=== PATIENT | female | born 1970 | race Hispanic/Latino ===

== ENCOUNTER 2017-09-08 19:23 | Emergency (ER) | payer SELFPAY ==
[~2017-09-08] VITALS: Ht 160 cm; Wt 95.3 kg
[~2017-09-08 19:23] MED LIST: LEVOTHYROXINE150 MCG PO
[2017-09-08] MEDS ORDERED: ALBUTEROL SULF 0.083% NEB SOLN 3 ML NEB NEB STA (19:27)
[2017-09-08] MEDS ORDERED: IPRATROPIUM BROMIDE 0.02% 2.5 ML NEB NEB STA (19:27)
[2017-09-08] MEDS ORDERED: IBUPROFEN 600 MG TAB PO STA (19:28)
[2017-09-08] MEDS ORDERED: DEXAMETHASONE SOD PHOS 10 MG/1 ML VIAL INJ ONE (19:30)
[2017-09-08] MEDS ORDERED: ACETAMINOPHEN/CODEINE ELIX 120-12 MG/5 ML UDC NG ONE (19:30)
[2017-09-08 19:56] VITALS: BP 5/3
[2017-09-08 20:15] LABS: BASOPHILS # (AUTO) 0.1 (0.0-0.1); BASOPHILS % 1.2 % (0.0-1.0); EOSINOPHILS # (AUTO) 0.1 (0.0-0.4); EOSINOPHILS % 1.7 % (0.0-6.0); HEMATOCRIT 44.4 % (34.2-44.1); HEMOGLOBIN 14.5 g/dL (12.0-16.0); LYMPHOCYTES # (AUTO) 0.8 (1.0-3.2); LYMPHOCYTES % 20.3 % (18.0-39.1); MEAN CORPUSCULAR HEMOGLOBIN 29.8 pg (28-32); MEAN CORPUSCULAR HGB CONC 32.7 g/dL (31-35); MEAN CORPUSCULAR VOLUME 91.2 fL (81-99); MONOCYTES # (AUTO) 0.6 (0.2-0.8); MONOCYTES % 14.8 % (4.4-11.3); NEUTROPHILS # (AUTO) 2.5 (2.1-6.9); NEUTROPHILS % 61.3 % (38.7-80.0); PLATELET COUNT 117 x10e3/uL (140-360); RED BLOOD COUNT 4.87 x10e6/uL (3.6-5.1); RED CELL DISTRIBUTION WIDTH 12.6 % (11.7-14.4)
--- NOTE | 2017-09-08 20:28 | Diagnostic Imaging Report ---
EXAM: CHEST 2 VIEWS, PA and lateral DATE: 09/08/2017 7:27 PM Time stamp on exam: 1940 hours INDICATION: Cough, fever congestion COMPARISON: AP view of the chest May 21, 2013 FINDINGS: LINES/TUBES: None LUNGS: No consolidations or edema. PLEURA: No effusions or pneumothorax. HEART AND MEDIASTINUM: Normal size and contour. BONES AND SOFT TISSUES: No acute findings. IMPRESSION: Study limited by motion artifact. No consolidations. Possible bronchial thickening. Signed by: Dr. Alicia iDckerson M.D. on 09/08/2017 8:24 PM
[2017-09-08 20:39] LABS: ALANINE AMINOTRANSFERASE 159 IU/L (0-55); ALBUMIN 3.6 g/dL (3.5-5.0); ALBUMIN/GLOBULIN RATIO 0.8 (0.8-2.0); ALKALINE PHOSPHATASE 106 IU/L (40-150); ANION GAP 11.8 mmol/L (8-16); BLOOD UREA NITROGEN 8 mg/dL (7-26); BUN/CREATININE RATIO 10 (6-25); CALCIUM 8.9 mg/dL (8.4-10.2); CARBON DIOXIDE 24 mmol/L (22-29); CHLORIDE 105 mmol/L (98-107); CREATININE, SERUM 0.82 mg/dL (0.57-1.11); EST GLOMERULAR FILTRATION RATE > 60 ML/MIN (60-); GLUCOSE 157 mg/dL (74-118); POTASSIUM 3.8 mmol/L (3.5-5.1); SODIUM 137 mmol/L (136-145)
[2017-09-08 21:11] LABS: INFLUENZAE A&B ANTIGEN (RAPID) NEGATIVE (NEGATIVE); STREPTOCOCCUS GRP A ANTIGEN NEGATIVE (NEGATIVE)
== END 2017-09-08 22:35 | disposition home or self-care (01) ==
LOC: ER 19:23
DX: R50.9 Fever, unspecified (principal); R05 Cough; J20.9 Acute bronchitis, unspecified; E03.9 Hypothyroidism, unspecified
CPT/HCPCS: 36415; 71020; 80053; 83518; 85025; 87070; 87400; 94640; 99284; J1100

== ENCOUNTER 2020-05-24 12:11 | Emergency (ER) | payer SELFPAY ==
[~2020-05-24] VITALS: Ht 160 cm; Wt 95.3 kg
[2020-05-24] MEDS ORDERED: KETOROLAC TROMETHAMINE 30 MG/ML VIAL IV STA (12:41)
--- NOTE | 2020-05-24 12:41 | Emergency Department Note ---
History of Present Illnes History of Present Illness Chief Complaint: COVID PUI History of Present Illness This is a 49 year old female Chief Complaint Comment Patient in from home with complaints of sore throat, body aches, headache and nausea that started yesteday. Patient was covid positive in the end of January and tested negative in February. Patient feels that she totally recovered from covid and these symptoms started yesterday. Patient states her throat pain is 10/10 and her body aches are 6/10. Historian: Patient Arrival Mode: Car Onset (how long ago): day(s) (1) Location: Throat Quality: Sharp Radiation: Reports non-radiation Severity: moderate Onset quality: gradual Duration (how long): day(s) (1) Timing of current episode: constant Progression: worsening Chronicity: new Context: Denies recent illness, Denies recent surgery Relieving factors: none Exacerbating factors: none Associated symptoms: Reports denies other symptoms Treatments prior to arrival: none Past Medical/Family History Physician Review I have reviewed the patient's past medical and family history. Any updates have been documented here. Past Medical History Recent Fever: No Clinical Suspicion of Infectio: No New/Unexplained Change in Ment: No Past Medical History: Hypothyroidism Other Surgery: Other Last Tetanus: UTD Review of Systems Review of Systems Constitutional: Reports chills, Reports fever EENTM: Reports as per HPI Cardiovascular: Reports no symptoms Respiratory: Reports no symptoms Gastrointestinal: Reports no symptoms Genitourinary: Reports no symptoms Musculoskeletal: Reports no symptoms Integumentary: Reports no symptoms Neurological: Reports no symptoms Psychological: Reports no symptoms Endocrine: Reports no symptoms Hematological/Lymphatic: Reports no symptoms Physical Exam Related Data Allergies: Coded Allergies: No Known Allergies (Unverified , 05/21/13) Triage Vital Signs Vital Signs Date Time Temp Pulse Resp B/P (MAP) Pulse Ox O2 Delivery O2 Flow Rate FiO2 05/24/20 12:27 99.6 110 20 150/99 100 Room Air Vital signs reviewed: Yes Physical Exam CONSTITUTIONAL Constitutional: Present well-developed, Present well-nourished HENT HENT: Present normocephalic, Present atraumatic, Present oropharynx clear/moist, Present nose normal HENT L/R: Present left ext ear normal, Present right ext ear normal EYES Eyes: Reports PERRL, Reports conjunctivae normal NECK Neck: Present ROM normal PULMONARY Pulmonary: Present effort normal, Present breath sounds normal CARDIOVASCULAR Cardiovascular: Present regular rhythm, Present heart sounds normal, Present capillary refill normal, Present tachycardia GASTROINTESTINAL Abdominal: Present soft, Present nontender, Present bowel sounds normal GENITOURINARY Genitourinary: Present exam deferred SKIN Skin: Present warm, Present dry MUSCULOSKELETAL Musculoskeletal: Present ROM normal NEUROLOGICAL Neurological: Present alert, Present oriented x 3, Present no gross motor or sensory deficits PSYCHOLOGICAL Psychological: Present mood/affect normal, Present judgement normal Assessment & Plan Medical Decision Making MDM 49-year-old female presents for sore throat, body aches, headache. Exam is largely unremarkable. Initial differential includes strep throat versus influenza versus other upper rest for infection. She has had COVID 2 months ago. Work up largely unremarkable. Will treat as viral URI. Doubt emergent process at this time. I discussed results patient as well as expected disease time course and management. They will follow up with their primary care provider or return to the emergency department for new or worsening symptoms. Patient's appropriate for discharge. Part of this note was dictated with Cherry and is subject to recognition errors. Reassessment Reassessment time: 13:17 Reassessment Well appearing, NAD Assessment & Plan Final Impression: (1) URI (upper respiratory infection) Depart Disposition: HOME, SELF-CARE Last Vital Signs Date Time Temp Pulse Resp B/P (MAP) Pulse Ox O2 Delivery O2 Flow Rate FiO2 05/24/20 12:27 99.6 110 20 150/99 100 Room Air Home Meds Reported Medications Levothyroxine Sodium (LEVOTHYROXINE SODIUM) 150 Mcg Tablet, 150 MCG PO DAILY 05/21/13 DAVID PHILLIPS MD May 24, 2020 12:41
[2020-05-24] MEDS ORDERED: SODIUM CHLORIDE 0.9% 1000ML 1,000 ML IV SCH (12:45)
--- OUTSIDE RECORDS SUMMARY | 2020-05-24 12:50 | XMS REPORT | Continuity of Care Document ---
Author Author [facility] t Organization Formerly [facility] Address [address] [place] [address] Phone Unavailable Care Team Providers Care Pss Delivery Professional Name Role Phone William FABIAN Attphys Unavailable Payers Payer Name Policy Type Policy Number Effective Date Expiration Date S ource Problems This patient has no known problems. Allergies, Adverse Reactions, Alerts Allergy Name Allergy Type Status Severity Reaction(s) Onset Date Inacti ve Date Treating Clinician Comments Source No Known Allergies DA Active U 2018-11-16 00:00:00 [facility] No Known Drug Intolerances DA Active U 2017-12-24 00:00:0 0 [facility] Medications This patient has no known medications. Procedures This patient has no known procedures. Results Test Description Test Time Test Comments Results Result Comments Source SCR MAMM BILATERAL RONI CAD DIGITAL 2019-10-30 11:23:05 - SCR MAMM BILATERAL RONI CAD DIGITALBILATERAL DIGITAL SCREENING MAMMOGRAM 3D/2D WITH CAD: 10/15/2019CLINICAL: Asymptomatic. Digital breast tomosynthesis was performed in addition to routine CC and MLO views. Current mammographic images were evaluated by either a Blume Distillation M-Vu or a SocialBro ImageChecker CAD (computer aided detection system). Comparison is made to exams dated 11/09/2015 mammogram and mammogram - [facility]. There are scattered fibroglandular tissues in both breasts. No suspicious mass, architectural distortion, malignant type calcification, or lymph node abnormality detected. Breast architecture is stable compared to prior exams.IMPRESSION: NEGATIVEThere is no mammographic evidence of malignancy. Resume annual screening mammography in one year. Rosalio arriola/penchina:10/30/2019 11:23:05 Acetylene Gas Compressor: Radha VEGA, [facility] sent: BIRADS 1-2 Normal Mammogram BI-RADS: 1 Negative UR HCG QUAL 2019-08-04 11:00:00 Test Item UR HCG QUAL (test code = HCGQLU) NEGATIVE This HCGQL test is NOT applicable for MALE patients.Check with nurse about probable order error.If Tumor Marker Test needed, nurse should order test "HCGTU"(Test #[id number]) - CT HEAD/BRAIN W/O [id number] 10:33:00 Name: ROSHANAWA BAUTISTA [facility] : 1970 Age/S: 48 / F [address] [facility] Unit #: [id number] Loc: [place] [address] Phys: Thaddeus Morrow MD Acct: [id number] Dis Date: Status: REG ER PHONE #: [phone] Exam Date: 08/04/2019 0948 FAX #: [phone] Reason: dizziness vomiting EXAMS: CPT CODE: [id number] CT HEAD/BRAIN W/O CONT 30802 HISTORY: dizziness vomiting TECHNIQUE: Noncontrast 2.[address] of the head. Examination acquired within 24 hours of arrival. Automated exposure control for dose reduction. COMPARISON: Noncontrast CT brain November 16, 2018 FINDINGS: No lacerations or contusions of the scalp or facial soft tissues. Calvarium and skull base are intact. No acute hemorrhage. No intracranial mass, mass effect, or midline shift. No effacement of the sulci or vang-white matter interface. Mild age-appropriate cortical atrophy is unchanged from the prior exam. No hydrocephalus.. No extra-axial fluid collection. Visualized paranasal sinuses are clear. Mastoid air cells and middle ear cavities are clear. Orbital contents are unremarkable. IMPRESSION: No acute intracranial process. Location: [facility] at 1033 Reported and signed by: Mateusz Clark C: Thaddeus Morrow MD Technologist:Kim Mathew per CTDI: DLP: Trnscb Date/Time: 08/04/2019 (1 033) [id number] Orig Print D/T: S: 08/04/2019 (3076) PAGE 1 Signed Report CBC W/O [id number] 10:12:00* Test Item Value Reference Range Interpretation Comments WHITE BLOOD CELL (test code = WBC) 5.1 K/mm3 4.5-12.5 N RED BLOOD CELL (test code = RBC) 5.05 mill/mm3 3.7-5.2 N HEMOGLOBIN (test code = HGB) 14.7 gram/dL 11.5-15.5 N HEMATOCRIT (test code = HCT) 44.6 % 36.0-46.0 N MEAN CELL VOLUME (test code = MCV) 88.3 fL 80-98 N MEAN CELL HGB (test code = MCH) 29.1 picogram 27.0-33.0 N MEAN CELL HGB CONCETRATION (test code = MCHC) 33.0 gram/dL 33.0-36. 0 N RED CELL DISTRIBUTION WIDTH (test code = RDW) 12.5 % 11.6-16. 2 N RED CELL DISTRIBUTION WIDTH SD (test code = RDW-SD) 41.1 fL 37 .0-51.0 N PLATELET COUNT (test code = PLT) 136 K/mm3 150-450 L MEAN PLATELET VOLUME (test code = MPV) 13.6 fL 6.7-11.0 H BASIC METABOLIC [id number] 10:12:00* Test Item Value Reference Range Interpretation Comments SODIUM (test code = NA) 140 mmol/L 136-145 N POTASSIUM (test code = K) 3.8 mmol/L 3.5-5.1 N CHLORIDE (test code = CL) 104 mmol/L 101-109 N CARBON DIOXIDE (test code = CO2) 25.5 mmol/L 21-32 N ANION GAP (test code = GAP) 14 mmol/L 10-20 N GLUCOSE (test code = GLU) 107 mg/dL 74-106 H BLOOD UREA NITROGEN (test code = BUN) 10 mg/dL 3-21 N GLOMERULAR FILTRATION RATE (test code = GFR) > 60 mL/min >=60 Estimated GFR by using Modified MDRD formula.Chronic kidney disease is defined as either kidney damageor GFR <60 mL/min/1.73 m2 for >3 months. CREATININE (test code = CREAT) 0.75 mg/dL 0.55-1.3 N BUN/CREATININE RATIO (test code = BUN/CREA) 13.3 10-20 N CALCIUM (test code = CA) 8.7 mg/dL 8.4-10.2 N HEPATIC FUNCTION [id number] 10:12:00* Test Item Value Reference Range Interpretation Comments TOTAL PROTEIN (test code = PROT) 7.9 g/dL 6.5-8.4 N ALBUMIN (test code = ALB) 3.4 g/dL 3.4-4.8 N GLOBULIN (test code = GLOB) 4.5 G/DL 1-10 N ALBUMIN/GLOBULIN RATIO (test code = A/G) 0.76 RATIO 0.75-1.50 N BILIRUBIN TOTAL (test code = BILT) 0.50 mg/dL 0.0-1.0 N BILIRUBIN DIRECT (test code = BILD) 0.10 mg/dL 0.0-0.30 N SGOT/AST (test code = AST) 44 U/L 6-32 H SGPT/ALT (test code = ALT) 53 U/L 12-78 N N ote: Change in REFERENCE RANGE due to new reagent method. ALKALINE PHOSPHATASE TOTAL (test code = ALKP) 110 U/L 38-126 N CREATINE KINASE (CK)2019-08-04 10:12:00* Test Item Value Reference Range Interpretation Comments CREATINE KINASE (CK) (test code = CK) 126 U/L 26-192 N [id number] 10:12:00* Test Item Value Reference Range Interpretation Comments TROPONIN-I (test code = TROPI) <0.015 ng/mL 0.00-0.056 N [id number] 10:10:00* Test Item Value Reference Range Interpretation Comments D-DIMER (test code = DDIMER) < 100 ng/ml < 600 URINALYSIS [id number] 10:08:00* Test Item Value Reference Range Interpretation Comments UA COLOR (test code = COLU) YELLOW YELLOW UA APPEARANCE (test code = APPU) HAZY CLEAR A UA GLUCOSE DIPSTICK (test code = DGLUU) norm mg/dL NEGATIVE UA BILIRUBIN DIPSTICK (test code = BILU) NEGATIVE mg/dL NEGATIVE UA KETONE DIPSTICK (test code = KETU) neg mg/dL NEGATIVE UA SPECIFIC GRAVITY (test code = SGU) 1.020 1.001-1.035 UA BLOOD DIPSTICK (test code = REY) 10 (Trace) Sunny/uL NEGATIVE A UA PH DIPSTICK (test code = CAROLYN) 5.0 5.0-8.0 UA PROTEIN DIPSTICK (test code = PROU) 30 (1+) mg/dL Neg-15 A UA UROBILINIOGEN DIPSTICK (test code = URO) norm mg/dL 0.0-0.2 UA NITRITE DIPSTICK (test code = LASHAE) NEGATIVE NEGATIVE UA LEUKOCYTE ESTERASE DIPSTICK (test code = LEUU) neg uL NEGA TIVE UA WBC (test code = WBCU) 0-1 per HPF 0-5 UA RBC (test code = RBCU) NONE SEEN per HPF 0-5 UA EPITHELIAL CELLS (test code = EPIU) MANY per HPF Few UA BACTERIA (test code = BACU) MODERATE per HPF NONE A Urine Source? Clean CatchBASIC METABOLIC [id number] 10:06:00* Test Item Value Reference Range Interpretation Comments SODIUM (test code = NA) 140 mmol/L 136-145 N POTASSIUM (test code = K) 3.8 mmol/L 3.5-5.1 N CHLORIDE (test code = CL) 104 mmol/L 101-109 N CARBON DIOXIDE (test code = CO2) 25.5 mmol/L 21-32 N ANION GAP (test code = GAP) 14 mmol/L 10-20 N GLUCOSE (test code = GLU) 107 mg/dL 74-106 H BLOOD UREA NITROGEN (test code = BUN) 10 mg/dL 3-21 N GLOMERULAR FILTRATION RATE (test code = GFR) > 60 mL/min >=60 Estimated GFR by using Modified MDRD formula.Chronic kidney disease is defined as either kidney damageor GFR <60 mL/min/1.73 m2 for >3 months. CREATININE (test code = CREAT) 0.75 mg/dL 0.55-1.3 N BUN/CREATININE RATIO (test code = BUN/CREA) 13.3 10-20 N CALCIUM (test code = CA) 8.7 mg/dL 8.4-10.2 N HEPATIC FUNCTION [id number] 10:06:00* Test Item Value Reference Range Interpretation Comments TOTAL PROTEIN (test code = PROT) gram/dL 6.4-8.2 ALBUMIN (test code = ALB) g/dL 3.4-5.0 GLOBULIN (test code = GLOB) g/dL 2.7-4.2 ALBUMIN/GLOBULIN RATIO (test code = A/G) 0.75-1.50 BILIRUBIN TOTAL (test code = BILT) mg/dL 0.2-1.2 BILIRUBIN DIRECT (test code = BILD) mg/dL 0.0-0.20 SGOT/AST (test code = AST) IUnit/L 15-37 SGPT/ALT (test code = ALT) U/L 10-69 ALKALINE PHOSPHATASE TOTAL (test code = ALKP) IUnit/L 45-117 CREATINE KINASE (CK)2019-08-04 10:06:00* Test Item Value Reference Range Interpretation Comments CREATINE KINASE (CK) (test code = CK) IUnit/L 26-208 [id number] 10:06:00* Test Item Value Reference Range Interpretation Comments TROPONIN-I (test code = TROPI) ng/mL 0-0.045 URINALYSIS [id number] 10:02:00* Test Item Value Reference Range Interpretation Comments UA COLOR (test code = COLU) YELLOW YELLOW UA APPEARANCE (test code = APPU) CLEAR UA GLUCOSE DIPSTICK (test code = DGLUU) norm mg/dL NEGATIVE UA BILIRUBIN DIPSTICK (test code = BILU) NEGATIVE mg/dL NEGATIVE UA KETONE DIPSTICK (test code = KETU) neg mg/dL NEGATIVE UA SPECIFIC GRAVITY (test code = SGU) 1.020 1.001-1.035 UA BLOOD DIPSTICK (test code = REY) 10 (Trace) Sunny/uL NEGATIVE A UA PH DIPSTICK (test code = CAROLYN) 5.0 5.0-8.0 UA PROTEIN DIPSTICK (test code = PROU) 30 (1+) mg/dL Neg-15 A UA UROBILINIOGEN DIPSTICK (test code = URO) norm mg/dL 0.0-0.2 UA NITRITE DIPSTICK (test code = LASHAE) NEGATIVE NEGATIVE UA LEUKOCYTE ESTERASE DIPSTICK (test code = LEUU) neg uL NEGA TIVE UA WBC (test code = WBCU) per HPF 0-5 UA RBC (test code = RBCU) per HPF 0-5 UA EPITHELIAL CELLS (test code = EPIU) per HPF Few UA BACTERIA (test code = BACU) per HPF NONE Urine Source? Clean Catch- XR CHEST 1 [id number] 10:02:00 Name: AWA ISLAS [facility] : 1970 Age/S:48 /F [address] [facility] Unit#:[id number] Loc: [place] [address] Phys: Thaddeus Morrow MD Dis Date: PHONE #: [phone] Status: REG ER FAX #: [phone] Exam Date: 08/04/2019 Reason: WEAKNESS EXAMS: CPT CODE: [id number] XR CHEST 1 V 10008 REASON FOR EXAM: WEAKNESS Exam Order Date: 08/04/2019 9:23 AM Ordering M.D.: Thaddeus Morrow MD PROCEDURE: - XR CHEST 1 V COMPARISON: None FINDINGS: The lungs are clear. There is no pleural effusion or pneumothorax. Pulmonary vascularity is within normal limits. Cardiomediastinal silhouette is normal in size for technique. The mediastinal contours are within normal limits. There are degenerative changes in the midthoracic spine. The visualized upp er abdomen is within normal limits. IMPRESSION: No acute cardiopulmonary process. Location: [facility] El ectronically Signed by Mateusz Crook MD on 08/04/2019 at 1002 Reported and signed by: Mateusz rCook MD CC: Thaddeus Morrow MD Technologist: Kim Durham Trnscrpt Data: 08/04/2019 (1002) [id number] Orig Print D/T: S: 08/04/2019 (1008) PAGE 1 Signed Report - CT HEAD/BRAIN W/O [id number] 23:44:00 Name: AWA ISLAS [facility] : 1970 Age/S: 48 / F [address] [facility] Unit #: [id number] Loc: [place] [address] Phys: Meng Peraza MD Acct: [id number] Dis Date: Status: REG ER PHONE #: [phone] Exam Date: 11/16/2018 2305 FAX #: [phone] Reason: facial weakness, dizziness EXAMS: CPT CODE: [id number] CT HEAD/BRAIN W/O CONT 65506 HISTORY: Female, 48 years of age with facial weakness, dizziness Location code: R16 EXAM: CT BRAIN WITHOUT CONTRAST COMPARISON: None. TECHNIQUE: Helical axial images were obtained through the brain without IV contrast. Coronal and sagittal reformats were performed. One or more of the following dose reduction techniques were used: Automated exposure control; adjustment of the mA and/or kV according to the patient size; and/or use of iterative reconstruction technique. FINDINGS: There is no acute intra-axial or extra-axial hemorrhage, mass, mass effect or midline shift. No acute loss of the cortical prather/white junctions. No hydrocephalus. There is no acute calvarial fracture. The sinuses and mastoids are clear. IMPRESSION: No acute intracranial hemorrhage, infarct, or mass. Findings were called to Dr. Peraza by Idalia Fang of the call service 1143pm. FOR INTERNAL CODING PURPOSES ONLY CRITICAL RESULT CODE: CVR at 2344 Reported and signed by: Marleen Bobby MD CC: Meng Peraza MD Technologist:MAE RAMIREZ CT CTDI: DLP: Trnscb Date/Time: 11/16/2018 (5584) [email or web address] Orig Print D/T: S: 11/16/2018 (8244) CTDI: DLP: PAGE 1 Signed Report CBC W/AUTO [id number] 23:41:00* Test Item Value Reference Range Interpretation Comments WHITE BLOOD CELL (test code = WBC) 6.4 K/mm3 4.5-12.5 N RED BLOOD CELL (test code = RBC) 4.94 mill/mm3 3.7-5.2 N HEMOGLOBIN (test code = HGB) 14.9 gram/dL 11.5-15.5 N HEMATOCRIT (test code = HCT) 45.1 % 36.0-46.0 N MEAN CELL VOLUME (test code = MCV) 91.3 fL 80-98 N MEAN CELL HGB (test code = MCH) 30.2 picogram 27.0-33.0 N MEAN CELL HGB CONCETRATION (test code = MCHC) 33.0 gram/dL 33.0-36. 0 N RED CELL DISTRIBUTION WIDTH (test code = RDW) 13.3 % 11.6-16. 2 N RED CELL DISTRIBUTION WIDTH SD (test code = RDW-SD) 43.6 fL 39 .1-52.0 N PLATELET COUNT (test code = PLT) 134 K/mm3 150-450 L MEAN PLATELET VOLUME (test code = MPV) 13.2 fL 6.7-11.0 H NEUTROPHIL % (test code = NT%) 47.3 % 39.0-69.0 N LYMPHOCYTE % (test code = LY%) 39.0 % 25.0-55.0 N MONOCYTE % (test code = MO%) 8.7 % 0.0-10.0 N EOSINOPHIL % (test code = EO%) 4.2 % 0.0-5.0 N BASOPHIL % (test code = BA%) 0.8 % 0.0-1.0 N NEUTROPHIL # (test code = NT#) 3.03 K/mm3 1.8-7.7 N LYMPHOCYTE # (test code = LY#) 2.50 K/mm3 1.0-5.0 N MONOCYTE # (test code = MO#) 0.56 K/mm3 0-0.8 N EOSINOPHIL # (test code = EO#) 0.27 K/mm3 0.0-0.5 N BASOPHIL # (test code = BA#) 0.05 K/mm3 0.0-0.2 N MANUAL DIFF REQUIRED (test code = MDIFF) NO, ONLY SCAN NEEDED DIFFERENTIAL [id number] 23:41:00* Test Item Value Reference Range Interpretation Comments STAIN ACCEPTABILITY (test code = STN ACCEPTABLE) STAIN ACCEPTABLE MORPHOLOGY COMMENT (test code = MOC) NORMAL PLATELET ESTIMATE (test code = PLTEST) SLIGHTLY DECREASED PLATELET MORPHOLOGY (test code = PLTMORPH) SIZE VARIABLE COMPREHENSIVE METABOLIC [id number] 23:37:00* Test Item Value Reference Range Interpretation Comments SODIUM (test code = NA) 140 mmol/L 135-148 N POTASSIUM (test code = K) 3.3 mmol/L 3.5-5.1 L CHLORIDE (test code = CL) 106 mmol/L 101-109 N CARBON DIOXIDE (test code = CO2) 20.8 mmol/L 21-32 L ANION GAP (test code = GAP) 17 mmol/L 10-20 N GLUCOSE (test code = GLU) 220 mg/dL 74-106 H BLOOD UREA NITROGEN (test code = BUN) 11 mg/dL 3-21 N CREATININE (test code = CREAT) 0.66 mg/dL 0.55-1.3 N BUN/CREATININE RATIO (test code = BUN/CREA) 16.7 10-20 N TOTAL PROTEIN (test code = PROT) 8.4 g/dL 6.5-8.4 N ALBUMIN (test code = ALB) 3.6 g/dL 3.4-4.8 N GLOBULIN (test code = GLOB) 4.8 G/DL 1-10 N ALBUMIN/GLOBULIN RATIO (test code = A/G) 0.8 RATIO 0.75-1.50 N CALCIUM (test code = CA) 8.3 mg/dL 8.4-10.2 L BILIRUBIN TOTAL (test code = BILT) 0.30 mg/dL 0.0-1.0 N SGOT/AST (test code = AST) 36 U/L 6-32 H SGPT/ALT (test code = ALT) 62 U/L 12-78 N N ote: Change in REFERENCE RANGE due to new reagent method. ALKALINE PHOSPHATASE TOTAL (test code = ALKP) 118 U/L 38-126 N CBC W/AUTO [id number] 23:20:00* Test Item Value Reference Range Interpretation Comments WHITE BLOOD CELL (test code = WBC) 6.4 K/mm3 4.5-12.5 N RED BLOOD CELL (test code = RBC) 4.94 mill/mm3 3.7-5.2 N HEMOGLOBIN (test code = HGB) 14.9 gram/dL 11.5-15.5 N HEMATOCRIT (test code = HCT) 45.1 % 36.0-46.0 N MEAN CELL VOLUME (test code = MCV) 91.3 fL 80-98 N MEAN CELL HGB (test code = MCH) 30.2 picogram 27.0-33.0 N MEAN CELL HGB CONCETRATION (test code = MCHC) 33.0 gram/dL 33.0-36. 0 N RED CELL DISTRIBUTION WIDTH (test code = RDW) 13.3 % 11.6-16. 2 N RED CELL DISTRIBUTION WIDTH SD (test code = RDW-SD) 43.6 fL 39 .1-52.0 N PLATELET COUNT (test code = PLT) 134 K/mm3 150-450 L MEAN PLATELET VOLUME (test code = MPV) 13.2 fL 6.7-11.0 H NEUTROPHIL % (test code = NT%) 47.3 % 39.0-69.0 N LYMPHOCYTE % (test code = LY%) 39.0 % 25.0-55.0 N MONOCYTE % (test code = MO%) 8.7 % 0.0-10.0 N EOSINOPHIL % (test code = EO%) 4.2 % 0.0-5.0 N BASOPHIL % (test code = BA%) 0.8 % 0.0-1.0 N NEUTROPHIL # (test code = NT#) 3.03 K/mm3 1.8-7.7 N LYMPHOCYTE # (test code = LY#) 2.50 K/mm3 1.0-5.0 N MONOCYTE # (test code = MO#) 0.56 K/mm3 0-0.8 N EOSINOPHIL # (test code = EO#) 0.27 K/mm3 0.0-0.5 N BASOPHIL # (test code = BA#) 0.05 K/mm3 0.0-0.2 N MANUAL DIFF REQUIRED (test code = MDIFF) NO, ONLY SCAN NEEDED DIFFERENTIAL [id number] 23:20:00* Test Item Value Reference Range Interpretation Comments STAIN ACCEPTABILITY (test code = STN ACCEPTABLE) CABOT RINGS (test code = CAB) MORPHOLOGY COMMENT (test code = MOC) PLATELET ESTIMATE (test code = PLTEST) PLATELET MORPHOLOGY (test code = PLTMORPH) CBC W/AUTO [id number] 23:20:00* Test Item Value Reference Range Interpretation Comments WHITE BLOOD CELL (test code = WBC) 6.4 K/mm3 4.5-12.5 N RED BLOOD CELL (test code = RBC) 4.94 mill/mm3 3.7-5.2 N HEMOGLOBIN (test code = HGB) 14.9 gram/dL 11.5-15.5 N HEMATOCRIT (test code = HCT) 45.1 % 36.0-46.0 N MEAN CELL VOLUME (test code = MCV) 91.3 fL 80-98 N MEAN CELL HGB (test code = MCH) 30.2 picogram 27.0-33.0 N MEAN CELL HGB CONCETRATION (test code = MCHC) 33.0 gram/dL 33.0-36. 0 N RED CELL DISTRIBUTION WIDTH (test code = RDW) 13.3 % 11.6-16. 2 N RED CELL DISTRIBUTION WIDTH SD (test code = RDW-SD) 43.6 fL 39 .1-52.0 N PLATELET COUNT (test code = PLT) 134 K/mm3 150-450 L MEAN PLATELET VOLUME (test code = MPV) 13.2 fL 6.7-11.0 H NEUTROPHIL % (test code = NT%) 47.3 % 39.0-69.0 N LYMPHOCYTE % (test code = LY%) 39.0 % 25.0-55.0 N MONOCYTE % (test code = MO%) 8.7 % 0.0-10.0 N EOSINOPHIL % (test code = EO%) 4.2 % 0.0-5.0 N BASOPHIL % (test code = BA%) 0.8 % 0.0-1.0 N NEUTROPHIL # (test code = NT#) 3.03 K/mm3 1.8-7.7 N LYMPHOCYTE # (test code = LY#) 2.50 K/mm3 1.0-5.0 N MONOCYTE # (test code = MO#) 0.56 K/mm3 0-0.8 N EOSINOPHIL # (test code = EO#) 0.27 K/mm3 0.0-0.5 N BASOPHIL # (test code = BA#) 0.05 K/mm3 0.0-0.2 N MANUAL DIFF REQUIRED (test code = MDIFF) NO, ONLY SCAN NEEDED DIFFERENTIAL [id number] 23:20:00* Test Item Value Reference Range Interpretation Comments STAIN ACCEPTABILITY (test code = STN ACCEPTABLE) CABOT RINGS (test code = CAB) MORPHOLOGY COMMENT (test code = MOC) PLATELET ESTIMATE (test code = PLTEST) PLATELET MORPHOLOGY (test code = PLTMORPH) CBC W/AUTO [id number] 23:20:00* Test Item Value Reference Range Interpretation Comments WHITE BLOOD CELL (test code = WBC) 6.4 K/mm3 4.5-12.5 N RED BLOOD CELL (test code = RBC) 4.94 mill/mm3 3.7-5.2 N HEMOGLOBIN (test code = HGB) 14.9 gram/dL 11.5-15.5 N HEMATOCRIT (test code = HCT) 45.1 % 36.0-46.0 N MEAN CELL VOLUME (test code = MCV) 91.3 fL 80-98 N MEAN CELL HGB (test code = MCH) 30.2 picogram 27.0-33.0 N MEAN CELL HGB CONCETRATION (test code = MCHC) 33.0 gram/dL 33.0-36. 0 N RED CELL DISTRIBUTION WIDTH (test code = RDW) 13.3 % 11.6-16. 2 N RED CELL DISTRIBUTION WIDTH SD (test code = RDW-SD) 43.6 fL 39 .1-52.0 N PLATELET COUNT (test code = PLT) 134 K/mm3 150-450 L MEAN PLATELET VOLUME (test code = MPV) 13.2 fL 6.7-11.0 H NEUTROPHIL % (test code = NT%) 47.3 % 39.0-69.0 N LYMPHOCYTE % (test code = LY%) 39.0 % 25.0-55.0 N MONOCYTE % (test code = MO%) 8.7 % 0.0-10.0 N EOSINOPHIL % (test code = EO%) 4.2 % 0.0-5.0 N BASOPHIL % (test code = BA%) 0.8 % 0.0-1.0 N NEUTROPHIL # (test code = NT#) 3.03 K/mm3 1.8-7.7 N LYMPHOCYTE # (test code = LY#) 2.50 K/mm3 1.0-5.0 N MONOCYTE # (test code = MO#) 0.56 K/mm3 0-0.8 N EOSINOPHIL # (test code = EO#) 0.27 K/mm3 0.0-0.5 N BASOPHIL # (test code = BA#) 0.05 K/mm3 0.0-0.2 N MANUAL DIFF REQUIRED (test code = MDIFF) NO, ONLY SCAN NEEDED DIFFERENTIAL [id number] 23:20:00* Test Item Value Reference Range Interpretation Comments STAIN ACCEPTABILITY (test code = STN ACCEPTABLE) MORPHOLOGY COMMENT (test code = MOC) PLATELET ESTIMATE (test code = PLTEST) PLATELET MORPHOLOGY (test code = PLTMORPH) CBC W/AUTO [id number] 23:19:00* Test Item Value Reference Range Interpretation Comments WHITE BLOOD CELL (test code = WBC) 6.4 K/mm3 4.5-12.5 N RED BLOOD CELL (test code = RBC) 4.94 mill/mm3 3.7-5.2 N HEMOGLOBIN (test code = HGB) 14.9 gram/dL 11.5-15.5 N HEMATOCRIT (test code = HCT) 45.1 % 36.0-46.0 N MEAN CELL VOLUME (test code = MCV) 91.3 fL 80-98 N MEAN CELL HGB (test code = MCH) 30.2 picogram 27.0-33.0 N MEAN CELL HGB CONCETRATION (test code = MCHC) 33.0 gram/dL 33.0-36. 0 N RED CELL DISTRIBUTION WIDTH (test code = RDW) 13.3 % 11.6-16. 2 N RED CELL DISTRIBUTION WIDTH SD (test code = RDW-SD) 43.6 fL 39 .1-52.0 N PLATELET COUNT (test code = PLT) 134 K/mm3 150-450 L MEAN PLATELET VOLUME (test code = MPV) 13.2 fL 6.7-11.0 H NEUTROPHIL % (test code = NT%) 47.3 % 39.0-69.0 N LYMPHOCYTE % (test code = LY%) 39.0 % 25.0-55.0 N MONOCYTE % (test code = MO%) 8.7 % 0.0-10.0 N EOSINOPHIL % (test code = EO%) 4.2 % 0.0-5.0 N BASOPHIL % (test code = BA%) 0.8 % 0.0-1.0 N NEUTROPHIL # (test code = NT#) 3.03 K/mm3 1.8-7.7 N LYMPHOCYTE # (test code = LY#) 2.50 K/mm3 1.0-5.0 N MONOCYTE # (test code = MO#) 0.56 K/mm3 0-0.8 N EOSINOPHIL # (test code = EO#) 0.27 K/mm3 0.0-0.5 N BASOPHIL # (test code = BA#) 0.05 K/mm3 0.0-0.2 N MANUAL DIFF REQUIRED (test code = MDIFF) NO, ONLY SCAN NEEDED DIFFERENTIAL [id number] 23:19:00* Test Item Value Reference Range Interpretation Comments STAIN ACCEPTABILITY (test code = STN ACCEPTABLE) CABOT RINGS (test code = CAB) MORPHOLOGY COMMENT (test code = MOC) PLATELET ESTIMATE (test code = PLTEST) PLATELET MORPHOLOGY (test code = PLTMORPH) CHEST 2 VIEWS [place] [address] Patient Name: AWA ISLAS MR #: [id number] : 1970 Age/Sex: 46/F Req #: [id number] Adm Physician: Ordered by: NAINA FOX SHIPPING/RECEIVING CLERK Report #: [id number] Location: ER Room/Bed: Procedure: [id number] DX/CHEST 2 VIEWS Exam Date: 09/08/17 Exam Time: 1939 REPORT STATUS: Signed EXAM: CHEST 2 VIEWS, PA and lateral DATE: 09/08/2017 7:27 PM Time stamp on exam: 1940 hours INDICATION: Cough, fever congestion COMPARISON: AP view of the chest May 21, 2013 FINDINGS: LINES/TUBES: None LUNGS: No consolidations or edema. PLEURA: No effusions or pneumothorax. HEART AND MEDIASTINUM: Normal size and contour. BONES AND SOFT TISSUES: No acute findings. IMPRESSION: Study limited by motion artifact. No consolid ations. Possible bronchial thickening. Signed by: Dr. Nyasia francois M.D. on 09/08/2017 8:24 PM Dictated By: NYASIA FLOREZ MD Electronical ly Signed By: NYASIA FLOREZ MD on 09/08/172023 Transcribed By: COLBY on 08/27 COPY TO: NAINA FOX NP
[2020-05-24 12:56] LABS: BASOPHILS # (AUTO) 0.1 (0.0-0.1); BASOPHILS % 0.8 % (0.0-1.0); EOSINOPHILS % 0.4 % (0.0-6.0); HEMATOCRIT 44.8 % (34.2-44.1); HEMOGLOBIN 14.6 g/dL (12.0-16.0); LYMPHOCYTES % 10.9 % (18.0-39.1); MEAN CORPUSCULAR HEMOGLOBIN 29.4 pg (28-32); MEAN CORPUSCULAR HGB CONC 32.6 g/dL (31-35); MEAN CORPUSCULAR VOLUME 90.1 fL (81-99); MONOCYTES # (AUTO) 0.9 (0.2-0.8); MONOCYTES % 9.2 % (4.4-11.3); NEUTROPHILS # (AUTO) 7.3 (2.1-6.9); NEUTROPHILS % 78.4 % (38.7-80.0); PLATELET COUNT 120 x10e3/uL (140-360); RED BLOOD COUNT 4.97 x10e6/uL (3.6-5.1); RED CELL DISTRIBUTION WIDTH 13.2 % (11.7-14.4)
[2020-05-24 13:18] LABS: INFLUENZAE A&B ANTIGEN (RAPID) NEGATIVE (NEGATIVE); STREPTOCOCCUS GRP A ANTIGEN NEGATIVE (NEGATIVE)
[2020-05-24 13:24] LABS: ALANINE AMINOTRANSFERASE 64 IU/L (0-55); ALBUMIN 4.4 g/dL (3.5-5.0); ALBUMIN/GLOBULIN RATIO 1.1 (0.8-2.0); ALKALINE PHOSPHATASE 101 IU/L (40-150); ANION GAP 12.7 mmol/L (8-16); BLOOD UREA NITROGEN 8 mg/dL (7-26); BUN/CREATININE RATIO 11 (6-25); CALCIUM 8.9 mg/dL (8.4-10.2); CARBON DIOXIDE 25 mmol/L (22-29); CHLORIDE 102 mmol/L (98-107); CREATININE, SERUM 0.76 mg/dL (0.57-1.11); EST GLOMERULAR FILTRATION RATE > 60 ML/MIN (60-); GLUCOSE 94 mg/dL (74-118); POTASSIUM 3.7 mmol/L (3.5-5.1); SODIUM 136 mmol/L (136-145)
--- NOTE | 2020-05-24 13:46 | Diagnostic Imaging Report ---
EXAMINATION: CHEST SINGLE (PORTABLE) INDICATION: Chest pain COMPARISON: chest radiograph 09/08/2017 FINDINGS: LINES/TUBES:None LUNGS:The lungs are well-inflated. No focal consolidation. Central pulmonary vascular congestion. PLEURA:No pleural effusion or pneumothorax. MEDIASTINUM:The cardiomediastinal silhouette appears normal in size and shape. BONES/SOFT TISSUES:No acute osseous injury. ABDOMEN:No free air under the diaphragm. IMPRESSION: Central pulmonary vascular congestion. No focal pneumonia or airspace edema. Signed by: Le Alejandra MD on 05/24/2020 1:43 PM
[2020-05-24 16:38] LABS: CLARITY,URINE CLEAR (CLEAR); COLOR,URINE YELLOW (YELLOW); KETONES,URINE NEGATIVE (NEGATIVE); LEUKOCYTE ESTERASE ,URINE NEGATIVE (NEGATIVE); NITRITE,URINE NEGATIVE (NEGATIVE); PROTEIN,URINE DIPSTICK NEGATIVE (NEGATIVE)
[2020-05-24 16:39] LABS: BILIRUBIN,URINE NEGATIVE (NEGATIVE); URINE UROBILINOGEN 0.2 mg/dL (0.2 - 1)
[2020-05-24 16:44] LABS: BACTERIA,URINE RARE /HPF; EPITHELIAL CELLS,URINE RARE /LPF; WBC,URINE (MAN) 0-5 /HPF (0-5)
== END 2020-05-24 17:04 | disposition home or self-care (01) ==
LOC: ER 12:45
DX: J06.9 Acute upper respiratory infection, unspecified (principal); R11.0 Nausea; R51 Headache; M79.10 Myalgia, unspecified site; R07.0 Pain in throat; E03.9 Hypothyroidism, unspecified
CPT/HCPCS: 36415; 71045; 80053; 81001; 83518; 85025; 87070; 87400; 99284; J1885; J7030

== ENCOUNTER → 2020-12-16 | Day surgery (SDC) | payer OTHER ==
[~2020-12-16] MED LIST changes: +DECARA625 MCG PO; +FENTANYL CITRATE/PF 100MCG/2 ML INJ ONE; +LIDOCAINE HCL 2% LOCAL INJ 5 ML SDV VIAL INJ ONE; +MIDAZOLAM HCL 2 MG/2 ML VIAL ONE; +PROPOFOL IV EMULSION 10 MG/ML 20 ML VIAL ONE; +VOLTAREN-XR100 MG PO
[2020-12-16 08:40] VITALS: BP 119/81
== END | disposition home or self-care (01) ==
LOC: OR 06:23
PROVIDERS: ATTEND Internal Medicine Gastroenterology
DX: Z12.11 Encounter for screening for malignant neoplasm of colon (principal); D12.5 Benign neoplasm of sigmoid colon; K57.30 Diverticulosis of large intestine without perforation or abscess without bleeding; K64.8 Other hemorrhoids; Z71.3 Dietary counseling and surveillance; E66.01 Morbid (severe) obesity due to excess calories; K76.0 Fatty (change of) liver, not elsewhere classified; J30.2 Other seasonal allergic rhinitis; Z01.810 Encounter for preprocedural cardiovascular examination; Z01.812 Encounter for preprocedural laboratory examination; Z20.822 Contact with and (suspected) exposure to COVID-19; Z68.42 Body mass index [BMI] 45.0-49.9, adult
CPT/HCPCS: 45385; 93005; J2001; J2250; J2704; J3010; U0002; 45378

== ENCOUNTER 2022-02-04 09:01 | Emergency (ER) | payer SELFPAY ==
[~2022-02-04] VITALS: Ht 160 cm; Wt 95.3 kg
[~2022-02-04 09:01] MED LIST changes: -FENTANYL CITRATE/PF 100MCG/2 ML INJ ONE; -LIDOCAINE HCL 2% LOCAL INJ 5 ML SDV VIAL INJ ONE; -MIDAZOLAM HCL 2 MG/2 ML VIAL ONE; -PROPOFOL IV EMULSION 10 MG/ML 20 ML VIAL ONE
== END 2022-02-04 09:35 | disposition home or self-care (01) ==
LOC: ER 09:05
DX: M25.512 Pain in left shoulder (principal); W18.2XXD Fall in (into) shower or empty bathtub, subsequent encounter; E03.9 Hypothyroidism, unspecified
CPT/HCPCS: 99283